=== PATIENT | male | born 1995 | race Caucasian/White ===

== ENCOUNTER 2017-12-31 13:46 | Emergency (ER) | payer OTHER ==
[2017-12-31 14:00] VITALS: BP 131/77
--- NOTE | 2017-12-31 14:03 | UC ---
Skin Complaint HPI - HPI Summary HPI Summary: 22 y/o male presents to the urgent care c/o rash in his chest, abdomen and B/L arms for the past 4 days. Now spreading in his B/L thighs. Pt reports itchiness and has been taking Benadryl PO to alleviate itchiness. Pt reports his bother has been Dx w/ Poison Inge and he wore his brother's shirt, but it was only 2 days ago. He was in is staying in a Hotel lately. However his family doesn't have similar symptoms. Pt denies eating or drinking something different lately. Denies using a new detergent, SOB, throat tightening, chest pain, abdominal pain , N/V/D. - History of Current Complaint Chief Complaint: UCSkin Time Seen by Provider: 12/31/17 14:02 Stated Complaint: RASH Hx Obtained From: Patient Onset/Duration: Gradual Onset, Lasting Days - 4 days, Still Present, Worse Since - today Skin Exposure Onset/Duration: Days Ago - 4 days Timing: Constant Onset Severity: Mild Current Severity: Moderate Pain Intensity: 0 Pain Scale Used: 0-10 Numeric Location: Generalized - in the abdomen, chest, B/l arms and B/l thighs Character: Pruritus, Redness Aggravating Factor(s): Touch Alleviating Factor(s): OTC Meds - Benadryl PO Associated Signs & Symptoms: Positive: Rash. Negative: Difficulty Breathing, Fever, Chills, Drainage, Bruising Related History: Possible Reaction to: Environmental Exposure - Allergy/Home Medications Allergies/Adverse Reactions: Allergies Allergy/AdvReac Type Severity Reaction Status Date / Time No Known Allergies Allergy Verified 12/31/17 14:00 Home Medications: Home Medications diPHENhydraMINE PO* [Benadryl PO 25 MG TAB*] 25 mg PO Q6H PRN 12/31/17 [History Confirmed 12/31/17] Review of Systems Constitutional: Negative Skin: Rash - generalized chest, abdomen, B/L arms and legs, Other - itchiness Eyes: Negative ENT: Negative Respiratory: Negative Cardiovascular: Negative Gastrointestinal: Negative Genitourinary: Negative Motor: Negative Neurovascular: Negative Musculoskeletal: Negative Neurological: Negative Psychological: Negative Is Patient Immunocompromised?: No All Other Systems Reviewed And Are Negative: Yes PMH/Surg Hx/FS Hx/Imm Hx Previously Healthy: Yes - Pt denies PMHX - Surgical History Surgical History: None - Family History Family History: Hypothyrodism - Social History Occupation: Employed Full-time Lives: With Family Alcohol Use: Occasionally Substance Use Type: None Smoking Status (MU): Never Smoked Tobacco - Immunization History Vaccination Up to Date: Yes Physical Exam - Summary Physical Exam Summary: Vital Signs Reviewed: Yes General: well developed, well nourished male sitting in the examining table w/ o any apparent distress. Eyes: Positive: Conjunctiva Clear - PERRLA, EOMI ENT: Positive: Normal ENT inspection, Hearing grossly normal, Pharynx normal, TMs normal Neck: Positive: Supple, Nontender, No Lymphadenopathy Respiratory: Positive: Chest nontender, Lungs clear, Normal breath sounds Cardiovascular: Positive: RRR, No Murmur, Pulses Normal Abdomen Description: Positive: Nontender, No Organomegaly, Soft. Negative: CVA Tenderness (R), CVA Tenderness (L) Bowel Sounds: Positive: Present Musculoskeletal: Positive: Strength Intact, ROM Intact, No Edema Neurological Exam: Normal Psychological Exam: Normal Skin: Positive: rashes - scattered erythematous maculopapular eruption, on abdomen and chest and some in some papules in B/L arms and thighs with non tenderness to palpation, no swelling observed. mild signs of excoriation. Triage Information Reviewed: Yes Vital Signs: Initial Vital Signs Temp 98.2 F 12/31/17 13:57 Pulse 83 12/31/17 13:57 Resp 16 12/31/17 13:57 BP 131/77 12/31/17 13:57 Pulse Ox 98 12/31/17 13:57 Course/Dx - Course Course Of Treatment: 22 y/o male presents to the urgent care c/o rash in his chest, abdomen and B/L arms for the past 4 days. Now spreading in his B/L thighs. Pt reports itchiness and has been taking Benadryl PO to alleviate itchiness. Pt reports his bother has been Dx w/ Poison Inge and he wore his brother's shirt, but it was only 2 days ago. He was in is staying in a Hotel lately. However his family doesn't have similar symptoms. Pt denies eating or drinking something different lately. Denies using a new detergent, SOB, throat tightening, chest pain, abdominal pain, N/V/D. Hx obtained. Pt w/. Positive scattered erythematous maculopapular eruption, on abdomen and chest and some in some papules in B/L arms and thighs with non tenderness to palpation, no swelling observed. mild signs of excoriation. Pt with unspecified rash on examination. Pt Rx Prednisone PO taper dose, hydrocortisone topical cream and advised to continue taking Benadryl PO for pruritus. Pt advised to return to the urgent care f/u w/ PCP or Clinical Operations Specialist DR Schultz if not improvement of symptoms. Pt understood and agreed with plan of care. - Differential Diagnoses - Skin Complaint Differential Diagnoses: Allergic Reaction, Drug Rash, Poison [place], Poison [place], Scabies, Urticaria, Other - bed bugs, - Diagnoses Provider Diagnoses: 1- Unpecified acute rash Discharge - Sign-Out/Discharge Documenting (check all that apply): Discharge/Admit/Transfer - D/C home - Discharge Plan Condition: Stable Disposition: HOME Prescriptions: Hydrocortisone 1% CREAM* [Hytone Cream 1%*] 1 applic TOPICAL BID PRN #1 tube PRN Reason: Rash predniSONE TAB* [Deltasone 20 MG TAB*] 20 mg PO DAILY #11 tab Patient Education Materials: Acute Rash (ED) Referrals: [facility] [Outside] - 3 Days Angella Schultz [Medical Doctor] - If Needed Additional Instructions: 1-Take Prednisone PO taper does to alleviate rash. Please apply Hydrocortisone topical cream as directed. Avoid sun exposure 2-Continue Taking Benadryl PO to alleviate itchiness. 3-If symptoms do not improve or worsen please f/u with your PCP 2-3 days or return to the urgent care for further evaluation and treatment. - Billing Disposition and Condition Condition: STABLE Disposition: Home
== END 2017-12-31 14:44 | disposition home or self-care (01) ==
LOC: UCEAST 13:46
DX: R21 Rash and other nonspecific skin eruption (principal); Z83.49 Family history of other endocrine, nutritional and metabolic diseases
CPT/HCPCS: 99202; G0463

== ENCOUNTER 2018-01-18 21:11 | Emergency (ER) | payer OTHER ==
[2018-01-18 22:03] LABS: ABS Basophils 0.1 10^3/ul (0-0.2); ABS Eosinophils 0 10^3/ul (0-0.6); ABS Lymphocytes 2.5 10^3/ul (1.0-4.8); ABS Monocytes 0.8 10^3/ul (0-0.8); ABS Nucleated RBC 0 10^3/ul; Eosinophil % 0.5 % (0-6); Hematocrit 36 % (42-52); Hemoglobin 12.5 g/dl (14.0-18.0); Mean Corpuscular HGB Conc 35 g/dl (31-36); Mean Corpuscular Hemoglobin 31 pg (27-31); Mean Corpuscular Volume 88 fL (80-94); Mean Platelet Volume 9.2 um3 (7.4-10.4); Nucleated Red Blood Cells % 0; Platelet Count 369 10^3/ul (150-450); Red Blood Count 4.08 10^6/ul (4.00-5.40); Red Cell Distribution Width 13 % (10.5-15); White Blood Count 8.5 10^3/ul (3.5-10.8)
[2018-01-18 22:12] LABS: INR 1.04 (0.77-1.02)
[2018-01-18 22:19] LABS: EGFR Non-African American 91.3 (>60)
--- NOTE | 2018-01-18 23:10 | ED ---
GI/ HPI - HPI Summary HPI Summary: This is scribe Nohemy Schaefer documenting for attending physician Yfn Lee M.D. Pt is a 22 y/o male who presents to [facility] c/o bloody stool. He states he started having black stool 4 days ago, and today started to have bloody stool. Pt states he had strep throat with a rash a few weeks ago, and was on Prednisone , antibiotics, and Ibuprofen. His last dose of Prednisone was 1 week ago. He denies any abdominal pain, N/V, dizziness, or syncope. Pt did not take any Motrin or ASA. - History of Current Complaint Chief Complaint: EDGeneral Time Seen by Provider: 01/18/18 22:50 Stated Complaint: ABD PAIN,BLOOD IN STOOL Hx Obtained From: Patient Onset/Duration: Started Days Ago - 4, Worse Since Timing: Constant Vaginal Bleeding Description: Dark Red Pain Intensity: 0 Associated Signs and Symptoms: Positive: Black Tarry Stool, Blood w/Stool, Diarrhea. Negative: Nausea, Vomiting Aggravating Factor(s): Nothing Alleviating Factor(s): Nothing - Allergy/Home Medications Allergies/Adverse Reactions: Allergies Allergy/AdvReac Type Severity Reaction Status Date / Time No Known Allergies Allergy Verified 01/18/18 21:17 PMH/Surg Hx/FS Hx/Imm Hx Endocrine/Hematology History: Denies: Hx Diabetes Cardiovascular History: Denies: Hx Hypertension Infectious Disease History: No Infectious Disease History: Denies: Traveled Outside the [place] in Last 30 Days - Family History Known Family History: Positive: Other - Hypothyroidism, NEGATIVE: GI problems Family History: Hypothyrodism - Social History Occupation: Student Alcohol Use: Occasionally Substance Use Type: Reports: None Smoking Status (MU): Never Smoked Tobacco Review of Systems Negative: Fever Positive: Diarrhea, Other - Black and bloody stool. Negative: Abdominal Pain, Vomiting, Nausea Neurological: Other - NEGATIVE: dizziness Negative: Syncope All Other Systems Reviewed And Are Negative: Yes Physical Exam - Summary Physical Exam Summary: VITAL SIGNS: Reviewed. GENERAL: Patient is a somewhat pale MALE who is lying comfortable in the stretcher. Patient is not in any acute respiratory distress. HEAD AND FACE: No signs of trauma. No ecchymosis, hematomas or skull depressions. No sinus tenderness. EYES: PERRLA, EOMI x 2, No injected conjunctiva, no nystagmus. EARS: Hearing grossly intact. Ear canals and tympanic membranes are within normal limits. MOUTH: Oropharynx within normal limits. NECK: Supple, trachea is midline, no adenopathy, no JVD, no carotid bruit, no c- spine tenderness, neck with full ROM. CHEST: Symmetric, no tenderness at palpation LUNGS: Clear to auscultation bilaterally. No wheezing or crackles. CVS: Tachycardia, Regular rate and rhythm, S1 and S2 present, no murmurs or gallops appreciated. ABDOMEN: Soft, non-tender. No signs of distention. No rebound no guarding, and no masses palpated. Bowel sounds are normal. BM in ED was maroon colored. EXTREMITIES: FROM in all major joints, no edema, no cyanosis or clubbing. NEURO: Alert and oriented x 3. No acute neurological deficits. Speech is normal and follows commands. SKIN: Dry and warm RECTAL: Maroon colored stool on finger. No masses. Triage Information Reviewed: Yes Vital Signs On Initial Exam: Initial Vitals Temp Pulse Resp BP Pulse Ox 98.7 F 120 16 117/77 99 01/18/18 21:14 01/18/18 21:14 01/18/18 21:14 01/18/18 21:14 01/18/18 21:14 Vital Signs Reviewed: Yes Cardiovascular: Positive: Tachycardia Diagnostics - Vital Signs Vital Signs Temp Pulse Resp BP Pulse Ox 01/18/18 21:14 98.7 F 120 16 117/77 99 - Laboratory Lab Results: Lab Results 01/18/18 01/18/18 01/18/18 Range/Units 21:52 21:52 21:52 WBC 8.5 (3.5-10.8) 10^3/ul RBC 4.08 (4.00-5.40) 10^6/ul Hgb 12.5 L (14.0-18.0) g/dl Hct 36 L (42-52) % MCV 88 (80-94) fL MCH 31 (27-31) pg MCHC 35 (31-36) g/dl RDW 13 (10.5-15) % Plt Count 369 (150-450) 10^3/ul MPV 9.2 (7.4-10.4) um3 Neut % (Auto) 59.2 (38-83) % Lymph % (Auto) 30.0 (25-47) % [place] % (Auto) 9.3 H (0-7) % Eos % (Auto) 0.5 (0-6) % Baso % (Auto) 1.0 (0-2) % Absolute Neuts (auto) 5.0 (1.5-7.7) 10^3/ul Absolute Lymphs (auto) 2.5 (1.0-4.8) 10^3/ul Absolute Monos (auto) 0.8 (0-0.8) 10^3/ul Absolute Eos (auto) 0 (0-0.6) 10^3/ul Absolute Basos (auto) 0.1 (0-0.2) 10^3/ul Absolute Nucleated RBC 0 10^3/ul Nucleated RBC % 0 INR (Anticoag Therapy) 1.04 H (0.77-1.02) APTT 29.1 (26.0-36.3) seconds Sodium 138 (135-145) mmol/L Potassium 3.9 (3.5-5.0) mmol/L Chloride 103 (101-111) mmol/L Carbon Dioxide 27 (22-32) mmol/L Anion Gap 8 (2-11) mmol/L BUN 30 H (6-24) mg/dL Creatinine 1.02 (0.67-1.17) mg/dL Est GFR ( Amer) 110.5 (>60) Est GFR (Non-Af Amer) 91.3 (>60) BUN/Creatinine Ratio 29.4 H (8-20) Glucose 93 (70-100) mg/dL Calcium 9.5 (8.6-10.3) mg/dL Total Bilirubin 0.70 (0.2-1.0) mg/dL AST 30 (13-39) U/L ALT 57 H (7-52) U/L Alkaline Phosphatase 49 (34-104) U/L Total Protein 7.0 (6.4-8.9) g/dL Albumin 4.4 (3.2-5.2) g/dL Globulin 2.6 (2-4) g/dL Albumin/Globulin Ratio 1.7 (1-3) Result Diagrams: 01/18/18 21:52 01/18/18 21:52 Lab Statement: Any lab studies that have been ordered have been reviewed, and results considered in the medical decision making process. GIGU Course/Dx - Course Course Of Treatment: Pt is a 22 y/o male who presents to [facility] c/o black stool for 4 days, and today started to have bloody stool. Pt states he had strep throat with a rash a few weeks ago, and was on Prednisone, antibiotics, and Ibuprofen. His last dose of the medications was 1 week ago. He denies any abdominal pain, N/V, dizziness, or syncope. A physical exam revealed somewhat pale, and a rectal exam revealed maroon colored stool on finger, no masses. Patient had a bowel movement in the emergency room that was about 100 cc of maroon-colored blood. Patient has mild elevation of his BUN, I do think patient has lower GI bleed rather than upper GI bleed .given the maroon-colored blood .and patient being hemodynamically stable . There is no gastroenterology service available [facility]. Patient will be transferred to [facility]. At 23 :46 Dr. Arceo was consulted, and he accepts pt for admission at [facility]. Final dx is lower GI bleed. - Diagnoses Provider Diagnoses: Lower GI bleed - Physician Notifications Discussed Care Of Patient With: Neftaly Arceo MD Time Discussed With Above Provider: 23:46 Instructed by Provider To: Other - Dr. Arceo accepts pt for admission at [facility]. He will call back with a bed assignment. Discharge - Sign-Out/Discharge Documenting (check all that apply): Patient Departure - Transfer, Sign-Out Patient Signing out patient TO: Neftaly Arceo MD - Discharge Plan Condition: Stable Disposition: ADMITTED TO OTHER HOSPITAL Referrals: [facility] [Primary Care Provider] - - Billing Disposition and Condition Condition: STABLE Disposition: Admitted to Other Hospital
[2018-01-18] MEDS ORDERED: NS 0.9% 1000 ML* 1,000 ML IV ONE (23:13)
[2018-01-18] MEDS ORDERED: Pantoprazole IV* 40 MG IV ONE (23:13)
[2018-01-19 01:24] VITALS: BP 125/68
== END 2018-01-19 01:22 | disposition short-term general hospital (02) ==
LOC: ED 21:11
DX: K92.2 Gastrointestinal hemorrhage, unspecified (principal); Z83.49 Family history of other endocrine, nutritional and metabolic diseases
CPT/HCPCS: 36415; 80053; 85025; 85610; 85730; 96374; 99284